=== PATIENT | male | born 1950 | race Caucasian/White ===

== ENCOUNTER 2022-11-18 15:12 | Emergency (ER) | payer MEDICARE, OTHER ==
[2022-11-18 15:28] VITALS: BP 113/70; O2SAT 95
--- NOTE | 2022-11-18 16:23 | XRAY Report ---
PROCEDURE: Chest 1 View X-Ray INDICATIONS: cough/congestion TECHNIQUE: One view of the chest was acquired. COMPARISON: None. FINDINGS: Surgical changes and devices: None. Lungs and pleura: No pleural effusions or pneumothorax. Bibasilar opacities, atelectasis versus cons olidation.. Mediastinum: Mediastinal contours appear normal. Heart size is normal. Bones and chest wall: No suspicious bony lesions. Overlying soft tissues appear unremarkable. IMPRESSION: Bibasilar opacities, atelectasis versus consolidation. Reviewed by: Archie Leger MD on 11/18/2022 4:21 PM PDT Approved by: Archie Leger MD on 11/18/2022 4:21 PM PDT Station ID: [id number]
--- NOTE | 2022-11-18 16:53 | ED Physician Documentation ---
PD HPI DYSPNEA - Stated complaint Stated Complaint: CONGESTION,SOA,COUGH - Chief complaint Chief Complaint: Resp - History obtained from History obtained from: Patient - Additional information Additional information: The patient comes to the emergency department chief complaint of cough and upper respiratory symptoms over the last approximately week. He has a history of COPD and states that he gets worried about developing bronchitis or pneumonia because he has had the most many times. He denies any fevers or chills. He states that shortness of breath is not any worse than usual. No abdominal symptoms. No chest pain. No other complaints at this time. PD PAST MEDICAL HISTORY - Present Medications Home Medications: Ambulatory Orders Medication Instructions Recorded Confirmed Azithromycin [Zithromax] 0 mg PO DAILY #6 tablet 11/18/22 predniSONE [Deltasone] 60 mg PO DAILY 5 Days #15 tablet 11/18/22 - Allergies Allergies/Adverse Reactions: Allergies Allergy/AdvReac Type Severity Reaction Status Date / Time gabapentin Allergy Dizziness Verified 11/18/22 15:15 PD ED PE NORMAL - Vitals Vital signs reviewed: Yes - General General: Alert and oriented X 3, No acute distress, Well developed/nourished - HEENT HEENT: Atraumatic, PERRL, EOMI, Moist mucous membranes - Neck Neck: Supple, no meningeal sign - Cardiac Cardiac: RRR, No murmur, Strong equal pulses - Respiratory Respiratory: No respiratory distress, Clear bilaterally - Abdomen Abdomen: Soft, Non tender, Non distended - Derm Derm: Normal color, Warm and dry, No rash - Extremities Extremities: No deformity - Neuro Neuro: Alert and oriented X 3 - Psych Psych: Normal mood, Normal affect Results - Vitals Vitals: Oxygen O2 Source Room air - Labs Labs: Laboratory Tests 11/18/22 15:55 Nasal Adenovirus (PCR) NOT DETECTED Nasal B. parapertussis DNA (PCR) NOT DETECTED Nasal Coronavir 229E PCR NOT DETECTED Nasal Coronavir HKU1 PCR NOT DETECTED Nasal Coronavir NL63 PCR NOT DETECTED Nasal Coronavir OC43 PCR NOT DETECTED Nasal Enterovir/Rhinovir PCR NOT DETECTED Nasal Influenza B PCR NOT DETECTED Nasal Influenza A PCR NOT DETECTED Nasal Parainfluen 1 PCR NOT DETECTED Nasal Parainfluen 2 PCR NOT DETECTED Nasal Parainfluen 3 PCR NOT DETECTED Nasal Parainfluen 4 PCR NOT DETECTED Nasal RSV (PCR) NOT DETECTED Nasal B.pertussis DNA PCR NOT DETECTED Nasal C.pneumoniae (PCR) NOT DETECTED Junito Human Metapneumo PCR NOT DETECTED Nasal M.pneumoniae (PCR) NOT DETECTED Nasal SARS-CoV-2 (PCR) DETECTED A PD Medical Decision Making - ED course Complexity details: reviewed results, re-evaluated patient, considered differential, d/w patient, d/w family ED course: The patient was sent for chest x-ray which showed bibasilar opacities which could represent atelectasis versus consolidation. His viral panel was positive for COVID. I discussed with the patient that his symptoms are most likely attributable to his COVID, but since there was the suggestion of possible consolidation, we will treat him with antibiotics as well. The patient is stable for discharge home. We have discussed the usual indications for follow- up and return. Departure - Departure Disposition: 01 Home, Self Care Clinical Impression: Bronchitis Condition: Stable Instructions: ED Upper Resp Infec Abx Tx Prescriptions: predniSONE [Deltasone] 60 mg PO DAILY 5 Days #15 tablet Azithromycin [Zithromax] 0 mg PO DAILY #6 tablet Comments: Your x-ray does not show any pneumonia. You most likely have bronchitis, and have been started on antibiotics in the emergency department for this. You have also been started on a course of prednisone, and should continue to take your nebulizer treatments and inhalers at home, as usual. A prescription for the same has been electronically transmitted to [facility] pharmacy in [place], your pharmacy of choice on record. Please follow-up with your primary doctor as needed. You do have a respiratory viral panel that is pending at this time. You will be called with any significant positive spit please also feel free to access your records via our hospital website at [email or web address]. On the website, you may click on the "[email or web address]" tab and sign up for the patient portal. In this way you may monitor for your test results from home. Forms: PCP List Discharge Date/Time: 11/18/22 17:58
[2022-11-18] MEDS: predniSONE 20 MG TABLET PO STA (17:10)
[2022-11-18] MEDS: AZITHROMYCIN 250 MG TABLET PO STA (17:10)
[2022-11-18 17:39] LABS: B. PARAPERTUSSIS- RESP PCR PAN NOT DETECTED; B. PERTUSSIS- RESP PCR PANEL NOT DETECTED; C. PNEUMONIAE- RESP PCR PANEL NOT DETECTED; CORONAVIRUS 229E-RESP PCR NOT DETECTED; CORONAVIRUS HKU1-RESP PCR NOT DETECTED; CORONAVIRUS NL63-RESP PCR NOT DETECTED; CORONAVIRUS OC43-RESP PCR NOT DETECTED; HUMAN METAPNEUMOVIRUS NOT DETECTED; INFLUENZA A- RESP PCR PANEL NOT DETECTED; INFLUENZA B - RESP PCR PANEL NOT DETECTED; M. PNEUMONIAE- RESP PCR PANEL NOT DETECTED; PARAINFLUENZA VIRUS 1 NOT DETECTED; PARAINFLUENZA VIRUS 2 NOT DETECTED; PARAINFLUENZA VIRUS 3 NOT DETECTED; PARAINFLUENZA VIRUS 4 NOT DETECTED; RHINOVIRUS/ENTEROVIRUS NOT DETECTED; RSV- RESP PCR PANEL NOT DETECTED
[2022-11-18 17:40] LABS: SARS-CoV-2 -RESP PCR PANEL DETECTED
== END 2022-11-18 17:58 | disposition home or self-care (01) ==
LOC: ED 15:12
DX: U07.1 COVID-19 (principal); J40 Bronchitis, not specified as acute or chronic
CPT/HCPCS: 87633; 99284

== ENCOUNTER 2023-03-22 14:20 | Emergency (ER) | payer OTHER ==
--- NOTE | 2023-03-22 15:00 | ED Physician Documentation ---
PD HPI BACK PAIN - Stated complaint Stated Complaint: BACK PX - Chief complaint Chief Complaint: Back Pain - History obtained from History obtained from: Patient - History of Present Illness Timing - onset: How many days ago (has had low back pains in the past. Has neck pains as well. Takes regular pain meds at hydrocodone 10 mg three times daily for intermediate. Usually controlled symptoms. Had abrupt worsening yesterday and worse overnight.Having pain down right leg anterolateral to great toe. No weakness nor numbness.) Timing - duration: Days Timing - details: Abrupt onset, Still present Review of Systems Constitutional: denies: Fever, Chills Nose: denies: Rhinorrhea / runny nose, Congestion Throat: denies: Sore throat Respiratory: reports: Cough (2-3 weeks ago, had URI that has since resolved.) PD PAST MEDICAL HISTORY - Past Medical History Past Medical History: Yes Cardiovascular: Hypertension, High cholesterol Respiratory: Asthma, COPD GI: GERD : Benign prostate hypertrophy, Other - Past Surgical History Past Surgical History: Yes Ortho: Other - Present Medications Home Medications: Ambulatory Orders Medication Instructions Recorded Confirmed Ipratropium [Atrovent] 0.5 mg INH Q6H 15 Days #150 ml 03/08/23 03/22/23 Albuterol Sulfate [Proair 90 mcg INH Q4HR 03/22/23 03/22/23 Respiclick] Aspirin Chewable [[place] 81 mg PO DAILY PM 03/22/23 03/22/23 Aspirin] Atorvastatin [Lipitor] 40 mg PO DAILY 03/22/23 03/22/23 Budesonide/Formoterol Fumarate 2 puffs INH BID 03/22/23 03/22/23 [Symbicort 160-4.5 Mcg Inhaler] Cetirizine [ZyrTEC] 10 mg PO DAILY 03/22/23 03/22/23 Hydrocodone/Acetaminophen 1 tab PO TID PRN 03/22/23 03/22/23 [Hydrocodone-Acetamin 10-325 mg] Meloxicam [Mobic] 7.5 mg PO BID 10 Days #20 tablet 03/22/23 Metoprolol Succinate [Toprol Xl] 50 mg PO DAILY 03/22/23 03/22/23 Montelukast [Singulair] 10 mg PO HS 03/22/23 03/22/23 Omeprazole 20 mg PO DAILY 03/22/23 03/22/23 Tamsulosin HCl [Flomax] 0.4 mg PO DAILY 03/22/23 03/22/23 Tiotropium [place] [Spiriva 2 puffs INH DAILY 03/22/23 03/22/23 Respimat] amLODIPine [Norvasc] 5 mg PO DAILY 03/22/23 03/22/23 oxyCODONE [Roxicodone] 5 mg PO Q6H PRN #20 tablet 03/22/23 tiZANidine [Zanaflex] 4 mg PO Q8H PRN #25 tablet 03/22/23 - Allergies Allergies/Adverse Reactions: Allergies Allergy/AdvReac Type Severity Reaction Status Date / Time gabapentin Allergy Dizziness Verified 03/22/23 14:59 - Social History Does the pt smoke?: No Smoking Status: Never smoker Does the pt drink ETOH?: No Does the pt have substance abuse?: No - POLST Patient has POLST: No PD ED PE NORMAL - Vitals Vital signs reviewed: Yes - General General: Alert and oriented X 3, Well developed/nourished, Other (appears in pain with ROM of the lower back. Able to sit up slowly in bed. ) - Cardiac Cardiac: RRR, No murmur - Respiratory Respiratory: No respiratory distress, Clear bilaterally - Back Back: Other (some tenderness of msucles paralumber area efrem to the right. ) - Derm Derm: Normal color, Warm and dry, No rash - Neuro Neuro: Alert and oriented X 3, No motor deficit, No sensory deficit, Normal speech Results - Vitals Vitals: Oxygen O2 Source Room air - Rads (name of study) lumbar CT Relevant Findings:: Prelim report reviewed (no omar acute abnormlaity. degenerative changes noted diffusely, efrem lower aspect. ), EMP independent interpretation of test PD Medical Decision Making - ED course Complexity details: reviewed old records (no LONNIE reports.), reviewed results (lumbar CT without acute abnormality. Degenerative changes noted. No fractures nor misalignment. Without caudal symptoms (just nerve root sciatic type) nor other red flags, I did not see indication for MRI. ), considered differential (low back pain with some radiation to right leg anterolateral around to great toe. no weakness nor numbness. Abrupt worsening more than prior episodes, with history of degenerative spine, got me to order CT to ensure no misalignment nor compression fx.), d/w patient Departure - Departure Disposition: 01 Home, Self Care Clinical Impression: Exacerbation of chronic back pain, Sciatica Condition: Stable Record reviewed to determine appropriate education?: Yes Instructions: ED Sciatica Prescriptions: Meloxicam [Mobic] 7.5 mg PO BID 10 Days #20 tablet oxyCODONE [Roxicodone] 5 mg PO Q6H PRN #20 tablet PRN Reason: Pain tiZANidine [Zanaflex] 4 mg PO Q8H PRN #25 tablet PRN Reason: Spasms Comments: Your CT scan does not show any acute bony abnormalities. In particular the alignment is good and no signs of compression deformities etc. You can still be having obviously the exacerbation of your low back pain. Continue with your usual medications since they are long-term for you and baseline medication. To that we will add other pain medication in the short-term in conjunction with some anti-inflammatories and muscle relaxants. Heat stretching and chiropractic or massage may be helpful for the low back as well. I sent your prescriptions to your preferred pharmacy, [facility]. Follow-up with your primary care this coming week if not improving well. Discharge Date/Time: 03/22/23 16:40
[2023-03-22] MEDS: KETOROLAC 30 MG/ML VIAL IM STA (15:26)
[2023-03-22] MEDS: HYDROmorphone 1 MG/ML CARPUJECT IM STA (15:26)
[2023-03-22] MEDS: methocarbamoL 500 MG TABLET PO STA (15:27)
[2023-03-22 16:03] VITALS: BP 108/89; O2SAT 96
--- NOTE | 2023-03-22 16:15 | CT Report ---
PROCEDURE: Lumbar Spine WO INDICATIONS: acutely worse chronic low back pain TECHNIQUE: Noncontrast 3 mm thick sections acquired from the T12 level to the sacrum. Sagittal and coronal refo rmats were constructed. For radiation dose reduction, the following was used: automated exposure co ntrol, adjustment of mA and/or kV according to patient size. COMPARISON: None. FINDINGS: Image quality: Excellent. Bones: No acute vertebral body compression fractures. No suspicious lytic or blastic bony lesions. Central spinal caliber is of normal overall caliber. No pars defects. Minimal retrolisthesis can be seen at L1-L2 and L2-L3. T12-L1: Normal in appearance. L1-L2: Dr. Height Mild disc bulge is seen. There is mild left-sided and no right-sided neuroforam inal narrowing. Minimal central canal narrowing is seen. L2-L3: The disc height is well-preserved. Mild to moderate disc bulge is seen. Mild bilateral morro ral foraminal narrowing is seen. Mild central canal narrowing is seen. L3-L4: Minimal loss of disc height is seen. Moderate disc bulge is seen, which is eccentric to the right. Mild to moderate facet hypertrophy can be seen. Moderate bilateral neuroforaminal narrowing ca n be seen, right worse than left. Moderate central canal narrowing is seen. L4-L5: Mild to moderate loss of disc height can be seen. Vacuum disc phenomenon is seen at this le kenan. At least moderate disc bulge is seen, which is eccentric to the left. Mild to moderate facet h ypertrophy can be seen. At least moderate bilateral neuroforaminal narrowing can be seen. At least mo derate central canal narrowing is seen, as on series 2 image 60. L5-S1: At least moderate loss of disc height is seen. Vacuum disc phenomenon is seen at this level. Endplate irregularity and sclerosis can be seen. Moderate disc bulge is seen at this level. Post eriorly directed endplate osteophytes are seen. Mild facet hypertrophy is seen. There is at least moderate bilateral neuroforaminal narrowing seen. Mild central canal narrowing is seen. Soft tissues: No retroperitoneal masses or hematomas. Visualized aorta is normal in caliber. Athero sclerotic calcification is seen. Along the medial aspect of the right kidney, there is a 5 cm cyst se en that measures 24 Hounsfield units. Left retroperitoneal postoperative clips are seen. IMPRESSION: No omar acute abnormality can be seen by CT. Multiple levels of significant lumbar spine degenerative change can be seen, which are worst inferior ly. If it would be helpful for clinical management decision making, please consider a dedicated, schedule d lumbar MRI for further evaluation (assuming that there is no contraindication). 5 cm right renal cyst seen, which cannot be defined as a simple cyst. When clinically appropriate, pl ease consider a follow-up ultrasound for further evaluation. Additional findings: Left retroperitoneal clips. Reviewed by: Denzel Obregon MD on 03/22/2023 3:14 PM [facility] Approved by: Denzel Obregon MD on 03/22/2023 3:14 PM [facility] Station ID: [id number]
== END 2023-03-22 16:40 | disposition home or self-care (01) ==
LOC: ED 14:20
DX: M54.41 Lumbago with sciatica, right side (principal); I10 Essential (primary) hypertension; E78.00 Pure hypercholesterolemia, unspecified; J44.9 Chronic obstructive pulmonary disease, unspecified; Z79.899 Other long term (current) drug therapy; Z79.82 Long term (current) use of aspirin; Z79.51 Long term (current) use of inhaled steroids
CPT/HCPCS: 72131; 96372; 99284; A9270; J1170